=== PATIENT | female | born 1965 | race African-American/Black ===

== ENCOUNTER 2017-04-11 11:33 | Emergency (ER) | payer SELFPAY ==
--- NOTE | 2017-04-11 11:42 | ER Document Report ---
ED General - General Stated Complaint: SYNCOPE Time Seen by Provider: 04/11/17 11:36 Mode of Arrival: Medic Information source: Patient, Emergency Med Personnel Notes: 52-year-old female with complaints of generalized weakness tiredness for months on end presents with complaints of a syncopal episode today. 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 She denies any chest pain shortness breath difficulty breathing. Patient does note chest wall tenderness after she had been sternal rubbed awake. Patient currently denies any complaint TRAVEL OUTSIDE OF THE [place] IN LAST 30 DAYS: No - HPI Onset: Other Onset/Duration: Sudden, Persistent Quality of pain: No pain Severity: Mild Pain Level: Denies Associated symptoms: Weakness Exacerbated by: Standing Relieved by: Denies Similar symptoms previously: No Recently seen / treated by doctor: No - Related Data Allergies/Adverse Reactions: No Known Allergies Allergy (Verified 01/31/16 11:51) Past Medical History - Social History Smoking Status: Never Smoker Cigarette use (# per day): No Chew tobacco use (# tins/day): No Smoking Education Provided: No Family History: Reviewed & Not Pertinent - Past Medical History Cardiac Medical History: Reports: Hx Hypertension - Immunizations Immunizations up to date: Yes Hx Diphtheria, Pertussis, Tetanus Vaccination: Yes Review of Systems - Review of Systems Notes: REVIEW OF SYSTEMS: CONSTITUTIONAL : Denies fever, chills, or sweats. Denies recent illness. EENT: Denies eye, ear, throat, or mouth pain or symptoms. Denies nasal or sinus congestion or discharge. Denies throat, tongue, or mouth swelling or difficulty swallowing. CARDIOVASCULAR: Denies chest pain. Denies palpitations or racing or irregular heart beat. Denies ankle edema. RESPIRATORY: Denies cough, cold, or chest congestion. Denies shortness of breath, difficulty breathing, or wheezing. GASTROINTESTINAL: Denies abdominal pain or distention. Denies nausea, vomiting , or diarrhea. Denies blood in vomitus, stools, or per rectum. Denies black, tarry stools. Denies constipation. GENITOURINARY: Denies difficulty urinating, painful urination, burning, frequency, blood in urine, or discharge. FEMALE GENITOURINARY: Denies vaginal bleeding, heavy or abnormal periods, irregular periods. Denies vaginal discharge or odor. MUSCULOSKELETAL: Denies back or neck pain or stiffness. Denies joint pain or swelling. SKIN: Denies rash, lesions or sores. HEMATOLOGIC : Denies easy bruising or bleeding. LYMPHATIC: Denies swollen, enlarged glands. NEUROLOGICAL: Admits to dizziness syncope PSYCHIATRIC: Denies anxiety or stress. Denies depression, suicidal ideation, or homicidal ideation. ALL OTHER SYSTEMS REVIEWED AND NEGATIVE. PHYSICAL EXAMINATION: GENERAL: Well-appearing, well-nourished and in no acute distress. HEAD: Atraumatic, normocephalic. EYES: Pupils equal round and reactive to light, extraocular movements intact, conjunctiva are normal. ENT: Nares patent, oropharynx clear without exudates. Moist mucous membranes. NECK: Normal range of motion, supple without lymphadenopathy LUNGS: Breath sounds clear to auscultation bilaterally and equal. No wheezes rales or rhonchi. HEART: Regular rate and rhythm without murmurs ABDOMEN: Soft, nontender, nondistended abdomen. No guarding, no rebound. No masses appreciated. Female : deferred Musculoskeletal: Normal range of motion, no pitting or edema. No cyanosis. NEUROLOGICAL: Cranial nerves grossly intact. Normal speech, normal gait. Normal sensory, motor exams PSYCH: Normal mood, normal affect. SKIN: Warm, Dry, normal turgor, no rashes or lesions noted. Dictation was performed using [email or web address] voice recognition software Physical Exam - Vital signs Vitals: Temp Pulse Resp BP Pulse Ox 98.3 F 87 20 154/101 H 98 04/11/17 11:52 04/11/17 11:52 04/11/17 11:52 04/11/17 11:52 04/11/17 11:52 Course - Re-evaluation Re-evalutation: 04/11/17 13:26 Upon patient's arrival I immediately evaluate her in the room, patient had complained of some chest tenderness and my initial concern was for a dissection however patient's pain is completely reproducible of her chest wall and occurred after she was sternal rub. Patient admits this is well. She denies any pain prior to this episode. On patient's blood work it is noted that she is anemic and appears to be chronic in nature probably secondary to iron deficiency. Patient is been instructed to take iron pills. Patient was also noted to be mildly hypokalemic and supplementation was given as well. Otherwise she was watched in the emergency department had no other complaints and did well. I will discharge her home as anemia secondary to probable iron deficiency and give her very strict return precautions After performing a Medical Screening Examination, I estimate there is LOW risk for INTRACRANIAL HEMORRHAGE, ISCHEMIC CVA, MALIGNANT DYSRHYTHMIA, ACUTE CORONARY SYNDROME, MENINGITIS, PULMONARY EMBOLISM, or SEPSIS thus I consider the discharge disposition reasonable. I have reevaluated this patient multiple times and no significant life threatening changes are noted. The patient and I have discussed the diagnosis and risks, and we agree with discharging home with close follow-up with the understanding that symptoms and presentations can change. We also discussed returning to the Emergency Department immediately if new or worsening symptoms occur. We have discussed the symptoms which are most concerning (e.g., changing or worsening pain, weakness, vomiting, fever) that necessitate immediate return. - Vital Signs Vital signs: Temp Pulse Resp BP Pulse Ox 98.3 F 87 17 159/80 H 97 04/11/17 11:52 04/11/17 11:52 04/11/17 13:00 04/11/17 12:01 04/11/17 13:00 - Laboratory Result Diagrams: 04/11/17 11:45 04/11/17 11:45 Laboratory results interpreted by me: 04/11/17 04/11/17 04/11/17 11:45 11:45 11:54 WBC 3.0 L Hgb 9.2 L Hct 30.4 L MCV 63 L MCH 19.2 L MCHC 30.4 L RDW 18.8 H Monocytes % 13.7 H Basophils % 2.4 H Absolute Neutrophils 1.4 L Potassium 3.2 L Urine Protein 30 H Urine Urobilinogen 2.0 H - Diagnostic Test Radiology reviewed: Image reviewed, Reports reviewed - EKG Interpretation by Me EKG shows normal: Sinus rhythm, [place], Intervals, QRS Complexes Discharge - Discharge Clinical Impression: Hypokalemia Syncope Qualifiers: Syncope type: unspecified Qualified Code(s): R55 - Syncope and collapse Anemia Qualifiers: Anemia type: iron deficiency Qualified Code(s): D50.9 - Iron deficiency anemia , unspecified HTN (hypertension) Qualifiers: Hypertension type: unspecified Qualified Code(s): I10 - Essential (primary) hypertension Condition: Stable Disposition: HOME, SELF-CARE Instructions: Anemia, Iron Deficiency ([facility]), Syncopal Episode ([facility]) Additional Instructions: Follow up with your physician tomorrow for further care or return to the ED IMMEDIATELY if symptoms worsen or new concerns occur. If you cannot afford to follow up with your primary care physician a list of low cost clinics have been provided at the end of your discharge papers as well.
[2017-04-11 11:55] LABS: ABSOLUTE BASOPHILS # (AUTO) 0.1 10^3/uL (0.0-0.2); ABSOLUTE LYMPHOCYTES (AUTO) 1.1 10^3/uL (0.5-4.7); ABSOLUTE MONOCYTES (AUTO) 0.4 10^3/uL (0.1-1.4); ABSOLUTE NEUT (AUTO) 1.4 10^3/uL (1.7-8.2); BASOPHILS % (AUTO) 2.4 % (0-2); EOSINOPHILS % (AUTO) 0.4 % (0-6); HEMATOCRIT 30.4 % (36.0-47.0); HEMOGLOBIN 9.2 g/dL (12.0-15.5); HGB HCT DIFFERENCE -2.8; LYMPHOCYTES % (AUTO) 37.2 % (13-45); MEAN CORPUSCULAR HEMOGLOBIN 19.2 pg (27.0-33.4); MEAN CORPUSCULAR HGB CONC 30.4 g/dL (32.0-36.0); MONOCYTES % (AUTO) 13.7 % (3-13); RED BLOOD COUNT 4.81 10^6/uL (3.72-5.28); RED CELL DISTRIBUTION WIDTH 18.8 % (11.5-14.0); SEGMENTED NEUTROPHILS % (AUTO) 46.3 % (42-78)
[2017-04-11 12:12] LABS: ALANINE AMINOTRANSFERASE 21 U/L (9-52); ALBUMIN 4.3 g/dL (3.5-5.0); ALKALINE PHOSPHATASE 81 U/L (38-126); ANION GAP 14 (5-19); ASPARTATE AMINO TRANSFERASE 27 U/L (14-36); BILIRUBIN,DIRECT 0.3 mg/dL (0.0-0.4); BILIRUBIN,TOTAL 0.4 mg/dL (0.2-1.3); BLOOD UREA NITROGEN 14 mg/dL (7-20); CALCIUM 9.2 mg/dL (8.4-10.2); CARBON DIOXIDE 24 mmol/L (22-30); CHLORIDE 102 mmol/L (98-107); CREATINE KINASE 80 U/L (30-135); CREATININE RESULT 0.77 mg/dL (0.52-1.25); GLUCOSE 107 mg/dL (75-110); POTASSIUM 3.2 mmol/L (3.6-5.0); SODIUM 140.3 mmol/L (137-145); TOTAL PROTEIN 7.8 g/dL (6.3-8.2)
[2017-04-11] MEDS ORDERED: POTASSIUM CHLORIDE 10 MEQ TABLET.SA PO ONE (12:14)
[2017-04-11 12:20] LABS: HYPOCHROMASIA 2+; MICROCYTOSIS 3+; POIKILOCYTOSIS 1+
[2017-04-11 12:20] LABS: APPEARANCE,URINE SLIGHTLY-CLOUDY; BILIRUBIN,URINE NEGATIVE (NEGATIVE); GLUCOSE, URINE NEGATIVE (NEGATIVE); KETONES,URINE NEGATIVE (NEGATIVE); LEUKOCYTE ESTERASE,URINE NEGATIVE (NEGATIVE); NITRITE,URINE NEGATIVE (NEGATIVE); PROTEIN,URINE 30 mg/dL (NEGATIVE)
[2017-04-11 12:21] LABS: ANISOCYTOSIS 1+; OVALOCYTES 1+
[2017-04-11 12:22] LABS: ROULEAUX SLIGHT
[2017-04-11 12:23] LABS: MEAN CORPUSCULAR VOLUME 63 fl (80-97)
[2017-04-11 12:25] LABS: TROPONIN I < 0.012 ng/mL
--- NOTE | 2017-04-11 12:34 | RADIOLOGY REPORT (SQ) ---
EXAM DESCRIPTION: CHEST PA/LAT COMPLETED DATE/TIME: 04/11/2017 12:27 pm REASON FOR STUDY: chest wall pain COMPARISON: 09/27/2014 EXAM PARAMETERS: NUMBER OF VIEWS: two views TECHNIQUE: Digital Frontal and Lateral radiographic views of the chest acquired. RADIATION DOSE: NA LIMITATIONS: none FINDINGS: LUNGS AND PLEURA: No opacities, masses or pneumothorax. No pleural effusion. MEDIASTINUM AND HILAR STRUCTURES: No masses or contour abnormalities. HEART AND VASCULAR STRUCTURES: Heart normal size. No evidence for failure. BONES: No acute findings. HARDWARE: None in the chest. OTHER: No other significant finding. IMPRESSION: NO SIGNIFICANT RADIOGRAPHIC FINDING IN THE CHEST. TECHNICAL DOCUMENTATION: JOB ID: [id number] [employer]- All Rights Reserved
[2017-04-11 13:30] VITALS: BP 160/92
--- NOTE | 2017-04-11 18:13 | EKG REPORT ---
SEVERITY:- NORMAL ECG - SINUS RHYTHM : Confirmed by: Buck Donohue MD 11-Apr-2017 18:12:50
[2017-04-14 10:58] LABS: PATH REVIEW PATHOLOGIST REVIEWED
== END 2017-04-11 13:30 | disposition home or self-care (01) ==
LOC: ER 11:33
DX: R55 Syncope and collapse (principal); D64.9 Anemia, unspecified; E87.6 Hypokalemia; R53.1 Weakness; R53.83 Other fatigue; I10 Essential (primary) hypertension
CPT/HCPCS: 36415; 71020; 80053; 81001; 82550; 82553; 84484; 84703; 85025; 93005; 93010; 99284

== ENCOUNTER → 2017-09-09 | Outpatient (CLI) | payer OTHER ==
[2017-09-09 13:23] LABS: HEMATOCRIT 33.4 % (36.0-47.0); HEMOGLOBIN 10.4 g/dL (12.0-15.5); MEAN CORPUSCULAR HEMOGLOBIN 22.1 pg (27.0-33.4); MEAN CORPUSCULAR VOLUME 71 fl (80-97); PLATELET COUNT 486 10^3/uL (150-450); RED CELL DISTRIBUTION WIDTH 20.2 % (11.5-14.0)
[2017-09-09 13:49] LABS: ABSOLUTE LYMPHOCYTES# (MANUAL) 2.6 10^3/uL (0.5-4.7); ABSOLUTE MONOCYTES # (MANUAL) 0.2 10^3/uL (0.1-1.4); ABSOLUTE NEUTROPHILS# (MANUAL) 2.1 10^3/uL (1.7-8.2); BASOPHILS % (MANUAL) 3 % (0-2); EOSINOPHILS % (MANUAL) 0 % (0-6); LYMPHOCYTES % (MANUAL) 52 % (13-45); MONOCYTES % (MANUAL) 3 % (3-13); SEGMENTED NEUTROPHILS % (MAN) 42 % (42-78); TOTAL CELLS COUNTED 100
[2017-09-09 13:50] LABS: ANISOCYTOSIS 2+; HYPOCHROMASIA 2+; OVALOCYTES 1+; PLATELET COMMENT INCREASED; POIKILOCYTOSIS 1+; TEAR DROP CELLS SLIGHT
[2017-09-10 15:02] LABS: ALANINE AMINOTRANSFERASE 24 U/L (9-52); ALKALINE PHOSPHATASE 69 U/L (38-126); ANION GAP 9 (5-19); ASPARTATE AMINO TRANSFERASE 16 U/L (14-36); BILIRUBIN,DIRECT 0.3 mg/dL (0.0-0.4); BILIRUBIN,TOTAL 0.4 mg/dL (0.2-1.3); BLOOD UREA NITROGEN 14 mg/dL (7-20); CALCIUM 9.4 mg/dL (8.4-10.2); CARBON DIOXIDE 28 mmol/L (22-30); CHLORIDE 104 mmol/L (98-107); GLUCOSE 85 mg/dL (75-110); POTASSIUM 4.5 mmol/L (3.6-5.0); SODIUM 141.4 mmol/L (137-145); TOTAL PROTEIN 7.5 g/dL (6.3-8.2)
== END ==
LOC: CCC 12:32
DX: D64.9 Anemia, unspecified (principal)
CPT/HCPCS: 36415; 80053; 82607; 82728; 82746; 85025

== ENCOUNTER 2018-09-04 19:45 | Emergency (ER) | payer SELFPAY ==
[2018-09-04] MEDS ORDERED: ONDANSETRON HCL INJ/PF 4 MG/2 ML SDV IV ONE (20:11)
--- NOTE | 2018-09-04 20:16 | ER Document Report ---
ED General - General Chief Complaint: Dizziness Stated Complaint: DIZZINESS Time Seen by Provider: 09/04/18 19:58 Primary Care Provider: JENY WANG DO [Primary Care Provider] - 09/06/18 Notes: Patient is a 53-year-old female who presents to the emergency department with a chief complaint of chest pain, dizziness (vertigo). Her symptoms started around 1430. She describes her chest pain as a pressure pain. Her pain was sudden in onset. She also states that she had some kind of numbness and tingling in her left arm a few days ago, but never went to have it checked here in the emergency department or her primary care provider. She is a past medical history of hypertension and borderline diabetes. She currently takes lisinopril. She is managing checking her borderline diabetes with diet. Patient denies any tobacco use. TRAVEL OUTSIDE OF THE [place] IN LAST 30 DAYS: No - Related Data Allergies/Adverse Reactions: No Known Allergies Allergy (Verified 01/31/16 11:51) Past Medical History - General Information source: Patient - Social History Smoking Status: Never Smoker Family History: Reviewed & Not Pertinent - Past Medical History Cardiac Medical History: Reports: Hx Hypertension Renal/ Medical History: Denies: Hx Peritoneal Dialysis - Immunizations Immunizations up to date: Yes Hx Diphtheria, Pertussis, Tetanus Vaccination: Yes Review of Systems - Review of Systems Notes: REVIEW OF SYSTEMS: CONSTITUTIONAL : Denies recent illness. Denies recent unintentional weight loss. Denies fever, chills, or sweats. EENT: Denies eye, ear, throat, or mouth pain, discharge, or symptoms. Denies na gracia or sinus congestion. CARDIOVASCULAR: See HPI RESPIRATORY: Denies shortness of breath, cough, congestion, difficulty breathing, or wheezing. GASTROINTESTINAL: See HPI GENITOURINARY: Denies difficulty urinating, burning, blood in urine, urgency or frequency. MUSCULOSKELETAL: Denies neck and back pain. Denies joint pain or swelling. SKIN: Denies rash, itchiness, or lesions HEMATOLOGIC : Denies easy bruising or bleeding. LYMPHATIC: Denies swollen, painful, enlarged glands. NEUROLOGICAL: See HPI PSYCHIATRIC: Denies stress, anxiety, alteration in sleep patterns, or depression. All other systems reviewed and negative. Physical Exam - Vital signs Vitals: Pulse Resp BP Pulse Ox 88 24 H 132/80 H 98 09/04/18 19:48 09/04/18 19:48 09/04/18 19:48 09/04/18 19:48 - Notes Notes: PHYSICAL EXAMINATION: GENERAL: Appears well, healthy, well-nourished, no acute distress. HEAD: Normocephalic, atraumatic. EYES: PERRL, conjunctiva normal, all extraocular movements intact, sclera nonicteric ENT: Moist mucous membranes. NECK: Supple, no noticeable swelling, redness, rash. Normal range of motion. LUNGS: Equal breath sounds bilaterally and clear to auscultation. No wheezes rales or rhonchi. CARDIOVASCULAR: S1-S2, regular rate, regular rhythm. Radial pulses 2+, normal. Reproducible chest pain upon palpation. ABDOMEN: Normoactive bowel sounds. Soft, nontender, no guarding, no rebound tenderness, and no masses palpated. EXTREMITIES: Normal strength and range of motion, no pitting or edema. No cyanosis. NEUROLOGICAL: Moves all extremities upon command. Strength 5/5 in all extremities. PSYCH: Normal mood, normal affect. SKIN: Warm, dry. No rash, lesions, ulcerations noted. Normal skin turgor. Course - Re-evaluation Re-evalutation: 09/04/18 20:20 The patient had an episode of desaturation to 81%. She was subsequently placed on 2 L nasal cannula. She states that she does not have sleep apnea, but she may have had an episode of sleep apnea, as she was sleeping at that time. Patient's pain is reproducible upon palpation, but mainly in her GI area. She denies any abdominal pain. 09/04/18 23:28 Patient was taken off her nasal cannula about 30 minutes ago and her oxygen saturation has been 97% or greater. Awaiting second troponin. 09/04/18 23:29 Patient states that she feels dizzy again. I will order a dose of meclizine and see if that helps with her dizziness. She states that she feels a swaying motion. She states that her dizziness earlier this afternoon felt more like the world was spinning. Differential diagnosis for the patient's chest pain includes ischemic chest pain (STEMI, NSTEMI, or unstable angina), pulmonary embolism, aortic dissection, pericarditis, chest wall pain. Based off patient's physical exam, history, EKG that does not show ST depressions or elevations, and troponin, the patient's heart score is 3 or less. Chest x-ray is negative for pneumonia, widened mediastinum, or pneumothorax. I do not suspect aortic dissection due to history, symmetrical pulses, chest x- ray, and vital signs. HEART Score: History:1 EK Age:1 Risk Factors: 1 Troponin:0 Total: 3 I have discussed with the patient the risk factors, age, and diagnostic studies. Based on these factors, the likelihood of the patient's chest pain being from a heart attack is a very low. Patient is able to make decisions for themself and verbalized understanding that their chest pain is most likely not due to heart attack. The patient has chosen to follow-up with a turkey egg gatherer in regards to their chest pain. 09/05/18 00:55 Patient states that she feels better after receiving her meclizine. She does not feel dizzy at this time. Second troponin is negative. Patient will follow- up with her primary care provider. I will also give her some meclizine to go home with. She also go home with some Zofran. I suspect the patient had a bout of vertigo earlier today, causing her symptoms. I have also advised her to follow-up with the turkey egg gatherer that she was referred to from when she was admitted, because she has a new first-degree heart block. She is in agreement with this plan. Patient did not have any desaturation episodes while she was awake. I suspect the patient also does have sleep apnea. Verbal instructions to have an evaluation for sleep apnea were given. Verbal discharge instructions were given to the patient. They verbalized understanding. They are stable for discharge. - Vital Signs Vital signs: Temp Pulse Resp BP Pulse Ox 98.2 F 88 13 154/88 H 100 09/05/18 02:04 09/04/18 19:48 09/05/18 01:59 09/05/18 01:59 09/05/18 01:59 - Laboratory Result Diagrams: 09/04/18 20:05 09/04/18 20:05 Laboratory results interpreted by me: 09/04/18 09/04/18 09/04/18 20:04 20:05 20:05 RDW 14.9 H Seg Neuts % (Manual) 17 L Lymphocytes % (Manual) 73 H Abs Neuts (Manual) 1.2 L Abs Lymphs (Manual) 5.3 H Potassium 3.4 L Glucose 130 H POC Glucose 128 H - EKG Interpretation by Me Additional EKG results interpreted by me: 09/04/18 Sinus rhythm with first-degree AV block. Rate 76; ID 236; QRS 114; 456; QTC 513. No ST elevations or depressions noted. Compared to patient's previous EKG, the patient now has a first-degree AV block. Discharge - Discharge Clinical Impression: Chest pain Qualifiers: Chest pain type: unspecified Qualified Code(s): R07.9 - Chest pain, unspecified Condition: Stable Disposition: HOME, SELF-CARE Instructions: Dizziness ([facility]), Meclizine ([facility]) Additional Instructions: You were seen today in the emergency department for dizziness, chest pain, and vomiting. You have been given meclizine, medication to help with your dizziness. Please take as needed for any dizziness. You have also been given Zofran, medication to help with nausea and vomiting. You can take 1 tablet every 4-6 hours as needed. Please follow-up with your primary care provider in regards to this visit. Please also follow-up with cardiology. Prescriptions: Meclizine HCl [Antivert 25 mg Tablet] 25 mg PO TIDP PRN #14 tablet PRN Reason: Referrals: JENY WANG DO [Primary Care Provider] - 09/06/18
[2018-09-04 20:28] LABS: HEMATOCRIT 39.9 % (36.0-47.0); HEMOGLOBIN 13.3 g/dL (12.0-15.5); MEAN CORPUSCULAR HEMOGLOBIN 28.3 pg (27.0-33.4); MEAN CORPUSCULAR HGB CONC 33.4 g/dL (32.0-36.0); MEAN CORPUSCULAR VOLUME 85 fl (80-97); PLATELET COUNT 312 10^3/uL (150-450); RED CELL DISTRIBUTION WIDTH 14.9 % (11.5-14.0); WHITE BLOOD COUNT 7.2 10^3/uL (4.0-10.5)
[2018-09-04 20:46] LABS: ABSOLUTE LYMPHOCYTES# (MANUAL) 5.3 10^3/uL (0.5-4.7); ABSOLUTE MONOCYTES # (MANUAL) 0.5 10^3/uL (0.1-1.4); ABSOLUTE NEUTROPHILS# (MANUAL) 1.2 10^3/uL (1.7-8.2); BASOPHILS % (MANUAL) 0 % (0-2); EOSINOPHILS % (MANUAL) 2 % (0-6); MONOCYTES % (MANUAL) 7 % (3-13); SEGMENTED NEUTROPHILS % (MAN) 17 % (42-78); TOTAL CELLS COUNTED 100
[2018-09-04 20:47] LABS: ALANINE AMINOTRANSFERASE 18 U/L (9-52); ALBUMIN 4.1 g/dL (3.5-5.0); ALKALINE PHOSPHATASE 84 U/L (38-126); ANION GAP 12 (5-19); ASPARTATE AMINO TRANSFERASE 15 U/L (14-36); BILIRUBIN,DIRECT 0.2 mg/dL (0.0-0.4); BILIRUBIN,TOTAL 0.4 mg/dL (0.2-1.3); BLOOD UREA NITROGEN 12 mg/dL (7-20); CALCIUM 9.7 mg/dL (8.4-10.2); CARBON DIOXIDE 25 mmol/L (22-30); CHLORIDE 100 mmol/L (98-107); CREATINE KINASE 50 U/L (30-135); GLUCOSE 130 mg/dL (75-110); POTASSIUM 3.4 mmol/L (3.6-5.0); SODIUM 137.1 mmol/L (137-145); TOTAL PROTEIN 7.4 g/dL (6.3-8.2)
[2018-09-04 20:48] LABS: LYMPHOCYTES % (MANUAL) 73 % (13-45); PLATELET COMMENT ADEQUATE; RBC MORPHOLOGY COMMENT NORMO-CYTIC/CHROMIC
[2018-09-04 21:00] LABS: NT PRO BNP 31 pg/mL (5-900)
[2018-09-04 21:03] LABS: CREATINE KINASE MB < 0.22 ng/mL (<4.55); TROPONIN I < 0.012 ng/mL
--- NOTE | 2018-09-04 21:35 | RADIOLOGY REPORT (SQ) ---
EXAM DESCRIPTION: CT HEAD WITHOUT IV CONTRAST COMPLETED DATE/TME: 09/04/2018 20:11 CLINICAL HISTORY: 53 years Female dizzy/vomiting COMPARISON: 09/02/2014 TECHNIQUE: Contiguous axial CT images obtained through the brain without IV contrast. This exam was performed according to our department optimization program which includes automated exposure control, adjustment of the mA and/or kv according to patient size and/or use of iterative reconstruction technique. FINDINGS: The ventricles and sulci are within normal limits for the patient's age. No midline shift or mass effect. No masses identified. No acute intracranial hemorrhage. No fluid or significant mucosal thickening in the visualized paranasal sinuses. No depressed calvarial fractures. IMPRESSION: No acute intracranial abnormality is identified.
--- NOTE | 2018-09-04 21:38 | RADIOLOGY REPORT (SQ) ---
EXAM DESCRIPTION: XR CHEST 1 VIEW COMPLETED DATE/TME: 09/04/2018 20:12 CLINICAL HISTORY: chest pain COMPARISON: April 11, 2017 FINDINGS: Cardiac silhouette is within normal limits. EKG leads project over the chest. Decreased lung volumes could be secondary to underinflation. There is no focal parenchymal or pleural disease. There is no acute osseous process visualized. IMPRESSION: No evidence of acute cardiopulmonary disease.
--- NOTE | 2018-09-04 22:05 | EKG REPORT ---
SEVERITY:- ABNORMAL ECG - SINUS RHYTHM FIRST DEGREE AV BLOCK NONSPECIFIC INTRAVENTRICULAR CONDUCTION DELAY NONSPECIFIC ST-T CHANGES DIFFUSE : Confirmed by: Buck Donohue MD 04-Sep-2018 22:04:44
[2018-09-04] MEDS ORDERED: LIDOCAINE 2% VISCOUS SOLN 20 ML UDCUP PO ONE (22:34)
[2018-09-04] MEDS ORDERED: MAG HYDROX/AL HYDROX/SIMETH SUSP 30 ML UDCUP PO ONE (22:34)
[2018-09-04] MEDS ORDERED: METOCLOPRAMIDE HCL ORAL SOLN 10 MG/10 ML UDCUP PO ONE (22:34)
[2018-09-04] MEDS ORDERED: MECLIZINE HCL 25 MG TABLET PO ONE (23:54)
[2018-09-05] MEDS ORDERED: ONDANSETRON ODT 4 MG TAB (6 TAB/ER DISP) PO PRN (01:06)
[2018-09-05 02:05] VITALS: BP 154/88
[2018-09-06 12:48] LABS: PATH REVIEW PATHOLOGIST REVIEWED
== END 2018-09-05 02:10 | disposition home or self-care (01) ==
LOC: ER 19:45
DX: R07.89 Other chest pain (principal); R42 Dizziness and giddiness; I44.0 Atrioventricular block, first degree; I10 Essential (primary) hypertension; Z79.899 Other long term (current) drug therapy
CPT/HCPCS: 93005; 99284; 96374; 36415; 82553; 82962; 82550; 83735; 85025; 80053; 84484; 83880; 71045; 70450; 93010; J3490; J2405

== ENCOUNTER 2020-03-19 10:55 | Emergency (ER) | payer SELFPAY ==
[2020-03-19] MEDS ORDERED: HYDROCODONE/ACETAMINOPHEN 5-325 MG TABLET PO ONE (11:46)
--- NOTE | 2020-03-19 11:48 | ER Document Report ---
ED Medical Screen (RME) - General Chief Complaint: Wrist Pain Stated Complaint: WRIST PAIN Time Seen by Provider: 03/19/20 11:46 Primary Care Provider: JENY WANG DO [Primary Care Provider] - Follow up as needed Information source: Patient Notes: Patient presents with left lateral wrist pain and swelling. Patient states she had the swelling for the past 2 days. Patient denies any injury. Patient with area of erythema over the distal ulna. Patient is left-hand dominant. Patient reports only underlying history of hypertension. I have greeted and performed a rapid initial assessment of this patient. A comprehensive ED assessment and evaluation of the patient, analysis of test results and completion of the medical decision making process will be conducted by additional ED providers. TRAVEL OUTSIDE OF THE [place] IN LAST 30 DAYS: No - Related Data Allergies/Adverse Reactions: No Known Allergies Allergy (Verified 01/31/16 11:51) Past Medical History - Past Medical History Cardiac Medical History: Reports: Hx Hypertension Renal/ Medical History: Denies: Hx Peritoneal Dialysis - Immunizations Immunizations up to date: Yes Hx Diphtheria, Pertussis, Tetanus Vaccination: Yes Physical Exam - Vital signs Vitals: Temp Pulse Resp BP Pulse Ox 98.4 F 77 16 144/91 H 98 03/19/20 11:12 03/19/20 11:12 03/19/20 11:12 03/19/20 11:12 03/19/20 11:12 - General General appearance: Alert Notes: Left wrist tenderness with minimal palpation, mild erythema over the distal ulnar area with swelling. Course - Vital Signs Vital signs: Temp Pulse Resp BP Pulse Ox 98.4 F 77 16 144/91 H 98 03/19/20 11:12 03/19/20 11:12 03/19/20 11:12 03/19/20 11:12 03/19/20 11:12 Doctor's Discharge - Discharge Referrals: JENY WANG DO [Primary Care Provider] - Follow up as needed
--- NOTE | 2020-03-19 12:13 | RADIOLOGY REPORT (SQ) ---
EXAM DESCRIPTION: WRIST LEFT 3 VIEWS IMAGES COMPLETED DATE/TIME: 03/19/2020 12:03 pm REASON FOR STUDY: L wrist pain, swelling COMPARISON: None. NUMBER OF VIEWS: Three views. TECHNIQUE: AP, lateral, and oblique radiographic images acquired of the left wrist. LIMITATIONS: None. FINDINGS: MINERALIZATION: Normal. BONES: No acute fracture or dislocation. No worrisome bone lesions. Normal alignment. SOFT TISSUES: No soft tissue swelling. No foreign body. OTHER: No other significant finding. IMPRESSION: NEGATIVE STUDY OF THE LEFT WRIST. NO RADIOGRAPHIC EVIDENCE OF ACUTE INJURY. TECHNICAL DOCUMENTATION: JOB ID: [id number] 2010 [employer]- All Rights Reserved Reading location - IP/workstation name: [email or web address]
[2020-03-19 12:25] LABS: ABSOLUTE EOSINOPHILS # (AUTO) 0.1 10^3/uL (0.0-0.6); ABSOLUTE LYMPHOCYTES (AUTO) 2.3 10^3/uL (0.5-4.7); ABSOLUTE MONOCYTES (AUTO) 0.3 10^3/uL (0.1-1.4); ABSOLUTE NEUT (AUTO) 2.4 10^3/uL (1.7-8.2); BASOPHILS % (AUTO) 0.7 % (0-2); EOSINOPHILS % (AUTO) 2.8 % (0-6); HEMATOCRIT 42.7 % (36.0-47.0); HEMOGLOBIN 14.4 g/dL (12.0-15.5); LYMPHOCYTES % (AUTO) 45.1 % (13-45); MEAN CORPUSCULAR HEMOGLOBIN 28.8 pg (27.0-33.4); MEAN CORPUSCULAR HGB CONC 33.7 g/dL (32.0-36.0); MEAN CORPUSCULAR VOLUME 86 fl (80-97); MONOCYTES % (AUTO) 6.2 % (3-13); PLATELET COUNT 264 10^3/uL (150-450); RED BLOOD COUNT 4.99 10^6/uL (3.72-5.28); RED CELL DISTRIBUTION WIDTH 14.3 % (11.5-14.0); SEGMENTED NEUTROPHILS % (AUTO) 45.2 % (42-78); TOTAL CELLS COUNTED % (AUTO) 100 %; WHITE BLOOD COUNT 5.2 10^3/uL (4.0-10.5)
[2020-03-19 12:48] LABS: ANION GAP 6 (5-19); BLOOD UREA NITROGEN 17 mg/dL (7-20); C-REACTIVE PROTEIN 14.3 mg/L (<10.0); CALCIUM 9.9 mg/dL (8.4-10.2); CARBON DIOXIDE 31 mmol/L (22-30); CHLORIDE 98 mmol/L (98-107); GLUCOSE 99 mg/dL (75-110); POTASSIUM 3.9 mmol/L (3.6-5.0); URIC ACID 4.8 mg/dL (2.5-7.5)
[2020-03-19 13:05] LABS: ERYTHROCYTE SEDIMENTATION RATE 22 mm/hr (0-30)
--- NOTE | 2020-03-19 15:00 | ER Document Report ---
ED General - General Chief Complaint: Wrist Pain Stated Complaint: WRIST PAIN Time Seen by Provider: 03/19/20 11:46 Primary Care Provider: JENY WANG DO [Primary Care Provider] - Follow up as needed TRAVEL OUTSIDE OF THE [place] IN LAST 30 DAYS: No - HPI Notes: 55-year-old female presents with left wrist pain. Patient states that she developed pain and swelling to her left wrist yesterday, swelling has greatly increased in size today. 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 While at work today a coworker wrapped her wrist and Coban which did somewhat improve her symptoms. She took Tylenol with mild relief of pain. Denies numbness or weakness in her hand. Left hand dominant. - Related Data Allergies/Adverse Reactions: No Known Allergies Allergy (Verified 01/31/16 11:51) Past Medical History - General Information source: Patient - Social History Smoking Status: Unknown if Ever Smoked Family History: Reviewed & Not Pertinent - Past Medical History Cardiac Medical History: Reports: Hx Hypertension Renal/ Medical History: Denies: Hx Peritoneal Dialysis - Immunizations Immunizations up to date: Yes Hx Diphtheria, Pertussis, Tetanus Vaccination: Yes Review of Systems - Review of Systems Constitutional: denies: Fever EENT: No symptoms reported Cardiovascular: No symptoms reported Respiratory: No symptoms reported Gastrointestinal: No symptoms reported Genitourinary: No symptoms reported Female Genitourinary: No symptoms reported Musculoskeletal: See HPI Skin: No symptoms reported Hematologic/Lymphatic: No symptoms reported Neurological/Psychological: No symptoms reported Physical Exam - Vital signs Vitals: Temp Pulse Resp BP Pulse Ox 98.4 F 77 16 144/91 H 98 03/19/20 11:12 03/19/20 11:12 03/19/20 11:12 03/19/20 11:12 03/19/20 11:12 - General General appearance: Appears well, Alert In distress: None - HEENT Head: Normocephalic, Atraumatic Extraocular movements intact: Yes Pupils: PERRL - Respiratory Respiratory status: No respiratory distress - Cardiovascular Pulses: Normal: Radial Normal capillary refill: Yes - Abdominal Inspection: Obese - Extremities Notes: There appears to be an circumscribed oval mildly erythematous area to be base of the left wrist on the ulnar aspect. There is some surrounding swelling. Patient has full range of motion of wrist and hand. No tenderness or limitations to range of motion of left elbow. - Neurological Neuro grossly intact: Yes Cognition: Normal Orientation: AAOx4 Motor strength normal: LUE, RUE, LLE, RLE Sensory: Normal - Psychological Associated symptoms: Normal affect - Skin Skin Temperature: Warm Course - Re-evaluation Re-evalutation: 55-year-old female presents with pain and swelling to her left wrist, atraumatic per her report. On exam there appears to be a circumscribed area of mild erythema, question if this represents possible insect bite versus small injury. She has intact range of motion to the left wrist and hand. Left arm is overall neurovascularly intact. The triage process she had labs drawn which were negative for leukocytosis and a very slight elevation of CRP 14, reference range of 10. Her x-ray was negative for fracture. Discussed with patient continue symptomatic care. She was provided an Srini wrap and a wrist splint for comfort. Return precautions given, stable at time of discharge. - Vital Signs Vital signs: Temp Pulse Resp BP Pulse Ox 98.0 F 76 16 155/100 H 100 03/19/20 15:59 03/19/20 15:59 03/19/20 15:59 03/19/20 15:59 03/19/20 15:59 - Laboratory Result Diagrams: 03/19/20 12:09 03/19/20 12:09 Laboratory results interpreted by me: 03/19/20 03/19/20 12:09 12:09 RDW 14.3 H Lymph % (Auto) 45.1 H Sodium 135.0 L Carbon Dioxide 31 H C-Reactive Protein 14.3 H - Diagnostic Test Radiology reviewed: Image reviewed, Reports reviewed Discharge - Discharge Clinical Impression: Acute pain of left wrist Disposition: HOME, SELF-CARE Additional Instructions: Continue to use Srini wrap and can apply ice to the wrist, continue use of ibuprofen for pain/swelling. You may use the Velcro splint for comfort, can consider using it at work which might be a better option than the Srini wrap. Follow-up with your primary care doctor. Return to the emergency department for any concerning worsening symptoms. Prescriptions: Ibuprofen [Ibu] 800 mg PO TID PRN #60 tablet PRN Reason: Referrals: JENY WANG DO [Primary Care Provider] - Follow up as needed
[2020-03-19] MEDS ORDERED: IBUPROFEN 800 MG TABLET PO ONE (15:20)
[2020-03-19 16:00] VITALS: BP 155/100
== END 2020-03-19 16:05 | disposition home or self-care (01) ==
LOC: ER 10:55
DX: M25.532 Pain in left wrist (principal); L53.9 Erythematous condition, unspecified; M79.89 Other specified soft tissue disorders; R79.82 Elevated C-reactive protein (CRP); I10 Essential (primary) hypertension
CPT/HCPCS: 36415; 80048; 84550; 85025; 85652; 86140; 99284